=== PATIENT | male | born 1980 | race African-American/Black ===

== ENCOUNTER 2018-01-31 00:08 | Emergency (ER) | payer OTHER ==
[~2018-01-31] VITALS: Ht 175.3 cm; Wt 81.7 kg
[2018-01-31] MEDS ORDERED: VENTOLIN HFA 1818 GM INH ×2 (00:15→01:06)
[2018-01-31] MEDS ORDERED: PREDNISONE 20 M20 MG PO (01:06)
[2018-01-31 01:36] VITALS: BP 124/73
== END 2018-01-31 01:37 | disposition home or self-care (01) ==
LOC: ER 00:08
DX: J45.901 Unspecified asthma with (acute) exacerbation (principal); J00 Acute nasopharyngitis [common cold]